=== PATIENT | male | born 1980 | race Caucasian/White ===

== ENCOUNTER 2020-02-20 10:11 | Emergency (ER) | payer BC ==
[2020-02-20] MEDS ORDERED: Ondansetron 4 MG/2 ML SDV IVPUSH ONE (10:42)
[2020-02-20] MEDS ORDERED: Sodium Chloride 0.9% 1,000 ML IV STA (10:42)
[2020-02-20] MEDS ORDERED: Sodium Chloride 0.9% 10 ML Syringe FLUSH PRN (10:42)
[2020-02-20] MEDS ORDERED: HYDROmorphone 1 MG/ML Syringe IVPUSH ONE (10:43)
[2020-02-20] MEDS ORDERED: Ketorolac 30 MG/ML SDV IVPUSH ONE (10:43)
--- NOTE | 2020-02-20 11:52 | EDM.PDOC ---
ED HPI GENERAL MEDICAL PROBLEM - General Chief Complaint: Abdominal Pain Stated Complaint: [facility] Time Seen by Provider: 02/20/20 10:20 Source of Information: Reports: Patient, EMS History Limitations: Reports: No Limitations - History of Present Illness INITIAL COMMENTS - FREE TEXT/NARRATIVE: The patient presents by [facility] for back and abdominal pain. The patient says last night this all started with back pain. His rubbed his back and it felt better. This morning the back pain was more intense and he has abdominal pain. He also has nausea, vomiting and diarrhea. He has no fever, chills, cough, congestion, runny nose, chest pain or shortness of breath. This has never happened to him before. He has no history of kidney stones. He still has his gallbladder and appendix. Onset: Gradual Duration: Day(s): (last night) Location: Reports: Abdomen, Back Quality: Reports: Sharp Severity: Severe Improves with: Reports: None Worsens with: Reports: None Associated Symptoms: Reports: Nausea/Vomiting. Denies: Chest Pain, Cough, Fever/Chills, Headaches, Shortness of Breath Abdominal Pain Score (Numeric/FACES): 10 - Related Data Allergies Allergy/AdvReac Type Severity Reaction Status Date / Time No Known Allergies Allergy Verified 02/20/20 10:23 Home Meds: Home Meds Ondansetron [Zofran ODT] 4 mg PO Q6H PRN #20 tab.dis 02/20/20 [Rx] Past Medical History - Past Health History Medical/Surgical History: Denies Medical/Surgical History Musculoskeletal History: Reports: Fracture Other Musculoskeletal History: right hand fracture - Past Surgical History GI Surgical History: Reports: Appendectomy Social & Family History - Tobacco Use Tobacco Use Status *Q: Never Tobacco User - Caffeine Use Caffeine Use: Reports: Energy Drinks, Soda - Recreational Drug Use Recreational Drug Use: No ED ROS GENERAL - Review of Systems Review Of Systems: See Below Constitutional: Reports: No Symptoms HEENT: Reports: No Symptoms Respiratory: Reports: No Symptoms Cardiovascular: Reports: No Symptoms Endocrine: Reports: No Symptoms GI/Abdominal: Reports: Abdominal Pain, Nausea, Vomiting : Reports: Flank Pain Musculoskeletal: Reports: No Symptoms ED EXAM, GI/ABD - Physical Exam Exam: See Below Exam Limited By: No Limitations General Appearance: Alert, No Apparent Distress Ears: Normal External Exam Nose: Normal Inspection Head: Atraumatic, Normocephalic Neck: Normal Inspection Respiratory/Chest: No Respiratory Distress, Lungs Clear, Normal Breath Sounds Cardiovascular: Regular Rate, Rhythm, No Edema, No Murmur GI/Abdominal Exam: Soft, No Organomegaly, No Mass, Tender (Moderate generalized tenderness) Back Exam: CVA Tenderness (L) Extremities: Normal Inspection Neurological: Alert, Oriented, No Motor/Sensory Deficits Course - Vital Signs Last Recorded V/S: Last Vital Signs Temp 97.3 F 02/20/20 13:12 Pulse 63 02/20/20 12:38 Resp 16 02/20/20 12:38 BP 119/68 02/20/20 12:38 Pulse Ox 91 L 02/20/20 12:38 - Orders/Labs/Meds Orders: Active Orders 24 hr Category Date Time Status Peripheral IV Care [RC] . DIRECTED Care 02/20/20 10:42 Active Abdomen Pelvis wo Cont [CT] Stat Exams 02/20/20 10:42 Taken HYDROmorphone [Dilaudid] Med 02/20/20 13:18 Once 0.5 mg IVPUSH ONETIME ONE Sodium Chloride 0.9% [Saline Flush] Med 02/20/20 10:42 Active 10 ml FLUSH ASDIRECTED PRN ED Antiemetic Medication Reflex [OM.PC] Stat Oth 02/20/20 10:42 Ordered Peripheral IV Insertion Adult [OM.PC] Stat Oth 02/20/20 10:42 Ordered Medication Orders Hydromorphone HCl (Dilaudid) 0.5 mg IVPUSH ONETIME ONE Stop: 02/20/20 13:19 Sodium Chloride (Saline Flush) 10 ml FLUSH ASDIRECTED PRN PRN Reason: Keep Vein Open Last Admin: 02/20/20 11:25 Dose: 10 ml Documented by: POPPY Labs: Laboratory Tests 02/20/20 02/20/20 02/20/20 Range/Units 11:10 11:10 11:22 WBC 18.16 H (4.23-9.07) K/mm3 RBC 5.19 (4.63-6.08) M/mm3 Hgb 15.3 (13.7-17.5) gm/dl Hct 45.2 (40.1-51.0) % MCV 87.1 (79.0-92.2) fl MCH 29.5 (25.7-32.2) pg MCHC 33.8 (32.2-35.5) g/dl RDW Std Deviation 42.2 (35.1-43.9) fL Plt Count 289 (163-337) K/mm3 MPV 9.5 (9.4-12.3) fl Neut % (Auto) 85.2 H (34.0-67.9) % Lymph % (Auto) 4.8 L (21.8-53.1) % [place] % (Auto) 9.4 (5.3-12.2) % Eos % (Auto) 0.3 L (0.8-7.0) Baso % (Auto) 0.1 (0.1-1.2) % Neut # (Auto) 15.45 H (1.78-5.38) K/mm3 Lymph # (Auto) 0.88 L (1.32-3.57) K/mm3 [place] # (Auto) 1.71 H (0.30-0.82) K/mm3 Eos # (Auto) 0.06 (0.04-0.54) K/mm3 Baso # (Auto) 0.02 (0.01-0.08) K/mm3 Manual Slide Review Abnormal smear Sodium 139 (136-145) mEq/L Potassium 4.5 (3.5-5.1) mEq/L Chloride 101 (98-107) mEq/L Carbon Dioxide 29 (21-32) mEq/L Anion Gap 13.5 (5-15) BUN 16 (7-18) mg/dL Creatinine 1.1 (0.7-1.3) mg/dL Est Cr Clr Drug Dosing 97.00 mL/min Estimated GFR (MDRD) > 60 (>60) mL/min BUN/Creatinine Ratio 14.5 (14-18) Glucose 130 H (74-106) mg/dL Calcium 9.8 (8.5-10.1) mg/dL Total Bilirubin 1.6 H (0.2-1.0) mg/dL AST 31 (15-37) U/L ALT 38 (16-63) U/L Alkaline Phosphatase 87 (46-116) U/L Total Protein 9.2 H (6.4-8.2) g/dl Albumin 4.8 (3.4-5.0) g/dl Globulin 4.4 gm/dL Albumin/Globulin Ratio 1.1 (1-2) Lipase 127 (73-393) U/L Urine Color Yellow (Yellow) Urine Appearance Slt cloudy H (Clear) Urine pH 5.5 (5.0-8.0) Ur Specific [place] > or = 1.030 (1.005-1.030) Urine Protein 1+ H (Negative) Urine Glucose (UA) Negative (Negative) Urine Ketones Negative (Negative) Urine Occult Blood Negative (Negative) Urine Nitrite Negative (Negative) Urine Bilirubin Negative (Negative) Urine Urobilinogen 0.2 (0.2-1.0) Ur Leukocyte Esterase Negative (Negative) Urine RBC Not seen (0-5) /hpf Urine WBC Not seen (0-5) /hpf Ur Squamous Epith Cells 0-5 (0-5) /hpf Urine Bacteria Not seen (FEW) /hpf Urine Mucus Few (FEW) /hpf Meds: Medications Generic Name Dose Route Start Last Admin Trade Name Silvia PRN Reason Stop Dose Admin Hydromorphone HCl 0.5 mg 02/20/20 13:18 Dilaudid IVPUSH 02/20/20 13:19 ONETIME ONE Sodium Chloride 10 ml 02/20/20 10:42 02/20/20 11:25 Saline Flush FLUSH 10 ml ASDIRECTED PRN Administration Keep Vein Open Discontinued Medications Generic Name Dose Route Start Last Admin Trade Name Silvia PRN Reason Stop Dose Admin Hydromorphone HCl 1 mg 02/20/20 10:43 02/20/20 11:26 Dilaudid IVPUSH 02/20/20 10:44 1 mg ONETIME ONE Administration Sodium Chloride 1,000 mls @ 1,000 mls/hr 02/20/20 10:42 02/20/20 11:25 Normal Saline IV 02/20/20 11:41 1,000 mls/hr .BOLUS STA Administration Ketorolac Tromethamine 30 mg 02/20/20 10:43 02/20/20 11:26 Toradol IVPUSH 02/20/20 10:44 30 mg ONETIME ONE Administration Ondansetron HCl 4 mg 02/20/20 10:42 02/20/20 11:25 Zofran IVPUSH 02/20/20 10:43 4 mg ONETIME ONE Administration - Re-Assessments/Exams Free Text/Narrative Re-Assessment/Exam: 02/20/20 11:51 I ordered an IV NS 1L bolus, zofran 4mg IV, dilaudid 1mg IV, toradol 30mg IV, labs, UA and a CT of his abdomen and pelvis. 02/20/20 13:19 His WBC is elevated at 18.16. His glucose is elevated at 132. His total bili is elevated at 1.6. His UA shows no UTI. His CT shows fluid filled colon suggestive of probable diarrheal illness. No other abnormality identified. He still has some pain so I ordered dilaudid 0.5mg IV. I will discharge him home with some zofran. Departure - Departure Time of Disposition: 13:25 Disposition: Home, Self-Care 01 Condition: Good Clinical Impression: Gastroenteritis - Discharge Information *PRESCRIPTION DRUG MONITORING PROGRAM REVIEWED*: Not Applicable *COPY OF PRESCRIPTION DRUG MONITORING REPORT IN PATIENT LIZ: Not Applicable Prescriptions: Ondansetron [Zofran ODT] 4 mg PO Q6H PRN #20 tab.dis PRN Reason: Nausea\vomiting Referrals: PCP,None [Ordering Only Provider] - Tuyet Ordaz PA-C [Physician Construction Area Manager] - 1 Week Forms: ED Department Discharge, ED Return to Work/School Form Additional Instructions: Drink plenty of fluids and advance your diet as tolerated. Take the zofran every 6 hours as needed for nausea and vomiting. Please return if you are worse. Sepsis Event Note (ED) - Evaluation Sepsis Screening Result: No Definite Risk - Focused Exam Vital Signs: Vital Signs Temp Pulse Resp BP Pulse Ox 02/20/20 13:12 97.3 F 02/20/20 12:38 63 16 119/68 91 L 02/20/20 10:17 97.0 F 60 16 129/85 98 - My Orders Last 24 Hours: My Active Orders 02/20/20 10:42 Peripheral IV Care [RC] . DIRECTED Abdomen Pelvis wo Cont [CT] Stat Sodium Chloride 0.9% [Saline Flush] 10 ml FLUSH ASDIRECTED PRN ED Antiemetic Medication Reflex [OM.PC] Stat Peripheral IV Insertion Adult [OM.PC] Stat 02/20/20 13:18 HYDROmorphone [Dilaudid] 0.5 mg IVPUSH ONETIME ONE - Assessment/Plan Last 24 Hours: My Active Orders 02/20/20 10:42 Peripheral IV Care [RC] . DIRECTED Abdomen Pelvis wo Cont [CT] Stat Sodium Chloride 0.9% [Saline Flush] 10 ml FLUSH ASDIRECTED PRN ED Antiemetic Medication Reflex [OM.PC] Stat Peripheral IV Insertion Adult [OM.PC] Stat 02/20/20 13:18 HYDROmorphone [Dilaudid] 0.5 mg IVPUSH ONETIME ONE
[2020-02-20] MEDS ORDERED: HYDROmorphone 0.5 MG/0.5 ML Syringe IVPUSH ONE (13:18)
--- NOTE | 2020-02-21 10:13 | CT ---
"PROCEDURE INFORMATION: Exam: CT Abdomen And Pelvis Without Contrast Exam date and time: 02/20/2020 1:21 PM Age: 39 years old Clinical indication: Abdominal pain TECHNIQUE: Imaging protocol: Computed tomography of the abdomen and pelvis without contrast. COMPARISON: No relevant prior studies available. FINDINGS: Liver: Normal. No mass. Gallbladder and bile ducts: Normal. No calcified stones. No ductal dilation. Pancreas: Normal. No ductal dilation. Spleen: Normal. No splenomegaly. Adrenal glands: Normal. No mass. Kidneys and ureters: Normal. No hydronephrosis. Stomach and bowel: The colon is fluid-filled suggesting probable diarrheal illness. No bowel obstruction is identified. The small bowel is decompressed. The stomach is unremarkable. Appendix: No evidence of appendicitis. Intraperitoneal space: Unremarkable. No free air. No significant fluid collection. Vasculature: Unremarkable. No abdominal aortic aneurysm. Lymph nodes: Unremarkable. No enlarged lymph nodes. Urinary bladder: Unremarkable as visualized. Reproductive: Unremarkable as visualized. Bones/joints: Unremarkable. No acute fracture. Soft tissues: Unremarkable. IMPRESSION: 1. Fluid-filled colon suggestive of probable diarrheal illness. No other abnormality identified. DIANA WEEMS | Final Radiology Report CONFIDENTIALITY STATEMENT This report is intended only for use by the referring physician, and only in accordance with law. If you received this in error, call [phone]. Page 2 of 2 Thank you for allowing us to participate in the care of your patient. Dictated and Authenticated by: Cyrus Vazquez MD 02/20/2020 2:02 PM Central Time ([place] & [place]) ARLIN"
== END 2020-02-20 13:43 | disposition home or self-care (01) ==
LOC: JD.ED 10:11
DX: K52.9 Noninfective gastroenteritis and colitis, unspecified (principal)
CPT/HCPCS: 36415; 74176; 80053; 81001; 83690; 85025; 96374; 96375; 96376; 99284; J1170; J1885; J2405; J7030

== ENCOUNTER 2020-08-23 20:36 | Emergency (ER) | payer BC ==
--- NOTE | 2020-08-23 21:12 | EDM.PDOC ---
ED HPI GENERAL MEDICAL PROBLEM - General Chief Complaint: Skin Complaint Stated Complaint: poss rash Time Seen by Provider: 08/23/20 20:46 Source of Information: Reports: Patient History Limitations: Reports: No Limitations - History of Present Illness INITIAL COMMENTS - FREE TEXT/NARRATIVE: Mr. Wagner is a very pleasant 40-year-old gentleman who now presents the ED after developing a generalized rash yesterday, 08/22/2020. The initial lesions were noticed on his chest, but since then, he has noticed some on both of his arms and one lesion on his face. For the most part, the lesions have stayed above the waist, and have spared the palms and soles. The lesions are not painful or pruritic. No prior similar symptoms. No recent fever. The patient has not attempted to treat the rash with any [id number] or home remedies. The only medication that the patient takes is Suboxone, for opioid addiction. No change in his dose recently. The patient denies recent travel, and he denies recently being in a hot tub. Here in the ED, the patient's initial BP is found to be mildly elevated at 153/100, otherwise, he is hemodynamically stable, afebrile, saturating 99% on room air. He appears to be comfortable. Prior to yesterday, the patient denies having a recent fever, chills, sore throat, ear pain, nasal or sinus congestion, cough, dyspnea, chest pain, p alpitations, nausea, vomiting, constipation, diarrhea, abdominal pain, urinary symptoms, recent weight gain or weight loss, recent bloody bowel movements or black bowel movements, recent joint aches, headaches, or rashes. The patient does not have a PCP. His Suboxone is prescribed by [facility] in [place]. - Related Data Allergies Allergy/AdvReac Type Severity Reaction Status Date / Time No Known Allergies Allergy Verified 02/20/20 10:23 Home Meds: Home Meds Buprenorphine HCl/Naloxone HCl [Suboxone 4 mg-1 mg Sl Film] 1 tab SL DAILY 08/23/20 [History] Past Medical History Musculoskeletal History: Reports: Fracture (left and right hand) Endocrine/Metabolic History: Reports: Obesity/BMI 30+ - Past Surgical History GI Surgical History: Reports: Appendectomy Social & Family History - Tobacco Use Tobacco Use Status *Q: Never Tobacco User - Caffeine Use Caffeine Use: Reports: None - Alcohol Use Alcohol Use History: No - Recreational Drug Use Recreational Drug Use: Yes Drug Use in Last 12 Months: No Recreational Drug Type: Reports: Oxycodone (including methadone, last took 2018) - Living Situation & Occupation Living situation: Reports: Single, with Significant Other (Fianc), with Family (2 kids) Occupation: Employed ([employer]) ED ROS GENERAL - Review of Systems Review Of Systems: Comprehensive ROS is negative, except as noted in HPI. ED EXAM, SKIN/RASH Exam: See Below Exam Limited By: No Limitations General Appearance: Alert, WD/WN, No Apparent Distress Skin: Warm, Dry, Intact, Normal Color, Rash (sparse maculopapular vesicular lesions, predominantly on the anterior thorax and both upper extremities, with very few seen on the back, face, or scalp.) Course - Vital Signs Last Recorded V/S: Last Vital Signs Temp 35.6 C L 08/23/20 20:49 Pulse 65 08/23/20 20:49 Resp 20 08/23/20 20:49 BP 153/100 H 08/23/20 20:49 Pulse Ox 99 08/23/20 20:49 - Re-Assessments/Exams Free Text/Narrative Re-Assessment/Exam: 08/23/20 21:09 The cause of the patient's maculopapular rash is not immediately obvious. I suspect that it is a viral exanthem, although it does not appear to be pityriasis rosea. It does not appear to be folliculitis. At this time, I am not recommending any specific treatment, however, I am recommending the patient follow-up with a Document Coordinator in [place] if his symptoms worsen or fail to improve. The patient is agreeable with that plan. Departure - Departure Time of Disposition: 21:10 Disposition: Home, Self-Care 01 Condition: Good Clinical Impression: Rash - Discharge Information *PRESCRIPTION DRUG MONITORING PROGRAM REVIEWED*: Not Applicable *COPY OF PRESCRIPTION DRUG MONITORING REPORT IN PATIENT LIZ: Not Applicable Instructions: Rash, Adult, [id number] Referrals: PCP,None [Primary Care Provider] - Forms: ED Department Discharge Additional Instructions: You were seen in the emergency room after developing a scattered generalized rash yesterday. Based on your history and physical examination, your rash appears to be a viral exanthem, although the exact cause of your rash is not known. If your symptoms persist or worsen, please follow-up with a Document Coordinator in [place]. In order to do so, we recommend you call the Physician Referral line at either [facility] or [facility]. If any other problems, please do not hesitate to return to the ER. Sepsis Event Note (ED) - Evaluation Sepsis Screening Result: No Definite Risk - Focused Exam Vital Signs: Vital Signs Temp Pulse Resp BP Pulse Ox 08/23/20 20:49 35.6 C L 65 20 153/100 H 99
== END 2020-08-23 21:15 | disposition home or self-care (01) ==
LOC: JD.ED 20:36
DX: R21 Rash and other nonspecific skin eruption (principal); E66.9 Obesity, unspecified; Z68.31 Body mass index [BMI] 31.0-31.9, adult
CPT/HCPCS: 99282

== ENCOUNTER 2022-12-09 11:54 | Emergency (ER) | payer BC ==
[2022-12-09] MEDS ORDERED: Metoclopramide 10 MG/2 ML SDV IVPUSH ONE (12:27)
[2022-12-09] MEDS ORDERED: diphenhydrAMINE 50 MG/ML SDV IVPUSH ONE (12:27)
[2022-12-09] MEDS ORDERED: Sodium Chloride 0.9% 1,000 ML IV SCH (12:45)
[2022-12-09 13:27] LABS: BASOPHILS ABSOLUTE AUTO 0.01 K/mm3 (0.01-0.08); BASOPHILS PERCENT AUTO 0.1 % (0.1-1.2); EOSINOPHILS ABSOLUTE AUTO 0.06 K/mm3 (0.04-0.54); EOSINOPHILS PERCENT AUTO 0.8 (0.8-7.0); HEMATOCRIT 38.3 % (40.1-51.0); IMMATURE GRAN ABSOLUTE AUTO 0.02 K/mm3 (0.00-0.10); IMMATURE GRAN PERCENT AUTO 0.3 % (<=1.0); LYMPHOCYTES ABSOLUTE AUTO 1.88 K/mm3 (1.32-3.57); LYMPHOCYTES PERCENT AUTO 25.8 % (21.8-53.1); MEAN CORPUSCULAR HEMOGLOBIN 29.9 pg (25.7-32.2); MEAN CORPUSCULAR HGB CONC 34.7 g/dl (32.2-35.5); MEAN CORPUSCULAR VOLUME 86.1 fl (79.0-92.2); MEAN PLATELET VOLUME 9.6 fl (9.4-12.3); MONOCYTES ABSOLUTE AUTO 0.42 K/mm3 (0.30-0.82); MONOCYTES PERCENT AUTO 5.8 % (5.3-12.2); NEUTROPHILS ABSOLUTE AUTO 4.91 K/mm3 (1.78-5.38); NEUTROPHILS PERCENT AUTO 67.2 % (34.0-67.9); PLATELET COUNT,PLT 254 K/mm3 (163-337); RED BLOOD CELL COUNT 4.45 M/mm3 (4.63-6.08)
[2022-12-09 13:30] LABS: HEMOGLOBIN 13.3 gm/dl (13.7-17.5)
[2022-12-09 13:44] LABS: INR 1.02; PROTHROMBIN TIME 10.9 SECONDS (9.7-12.0)
[2022-12-09 13:45] LABS: PTT,PARTIAL THROMBOPLSTIN TIME 26.2 SECONDS (21.7-31.4)
[2022-12-09 13:54] LABS: A/G RATIO 1.1 (1-2); ALANINE AMINOTRANSFERASE,ALT 23 U/L (16-63); ALBUMIN 4.2 g/dl (3.4-5.0); ALKALINE PHOSPHATASE 76 U/L (46-116); ANION GAP 13.3 (5-15); ASPARTATE AMNIOTRANSFERASE,AST 18 U/L (15-37); BILIRUBIN TOTAL 1.2 mg/dL (0.2-1.0); BLOOD UREA NITROGEN,BUN 10 mg/dL (7-18); BUN/CREATININE RATIO 11.1 (14-18); CALCIUM 9.6 mg/dL (8.5-10.1); CARBON DIOXIDE,CO2 27 mEq/L (21-32); CHLORIDE,CL 103 mEq/L (98-107); CREATININE 0.9 mg/dL (0.7-1.3); EST CRCL DRUG DOSING (CG) 114.96 mL/min; ESTIMATED GFR 108 mL/min (>60); GLUCOSE RANDOM 126 mg/dL (70-99); POTASSIUM,K 4.3 mEq/L (3.5-5.1); PROTEIN TOTAL,TP 8.2 g/dl (6.4-8.2); SODIUM,NA 139 mEq/L (136-145); TROPONIN I HIGH SENSITIVITY 6 pg/mL (<=76)
[2022-12-09 14:15] LABS: C-REACTIVE PROTEIN < 0.2 mg/dL (<1.0)
== END 2022-12-09 15:28 | disposition home or self-care (01) ==
LOC: JD.ED 11:54
DX: R42 Dizziness and giddiness (principal); H65.93 Unspecified nonsuppurative otitis media, bilateral; E66.9 Obesity, unspecified; Z68.30 Body mass index [BMI] 30.0-30.9, adult
CPT/HCPCS: 36415; 80053; 83735; 84484; 85025; 85610; 85730; 86140; 93005; 96374; 96375; 99284; J1200; J2765; J7030; 93010

== ENCOUNTER 2025-01-15 15:45 | Emergency (ER) | payer BC ==
[2025-01-15] MEDS: droPERidol 2.5 MG/ML SDV IV STA (16:22)
[2025-01-15 16:28] LABS: BASOPHILS ABSOLUTE AUTO 0.0 K/mm3 (0.0-0.2); BASOPHILS PERCENT AUTO 0.2 % (0.0-1.0); EOSINOPHILS ABSOLUTE AUTO 0.0 K/mm3 (0.0-0.4); EOSINOPHILS PERCENT AUTO 0.0 % (0.0-6.0); IMMATURE GRAN ABSOLUTE AUTO 0.05 K/mm3 (0.00-0.05); IMMATURE GRAN PERCENT AUTO 0.5 % (0.0-0.4); LYMPHOCYTES ABSOLUTE AUTO 1.1 K/mm3 (1.0-4.8); LYMPHOCYTES PERCENT AUTO 10.6 % (24.0-44.0); MEAN PLATELET VOLUME 9.7 fl (9.4-12.4); MONOCYTES ABSOLUTE AUTO 0.4 K/mm3 (0.0-0.8); MONOCYTES PERCENT AUTO 3.5 % (0.0-8.0); NEUTROPHILS ABSOLUTE AUTO 8.6 K/mm3 (1.8-7.7); NEUTROPHILS PERCENT AUTO 85.2 % (41.0-71.0); NRBC ABSOLUTE 0.00 (0.00-0.02); NRBC PERCENT 0.0 % (0.0-0.2); PLATELET COUNT,PLT 253 K/mm3 (150-400); RED BLOOD CELL COUNT 4.71 M/mm3 (4.52-5.90); WHITE BLOOD CELL COUNT,WBC 10.13 K/mm3 (3.9-11.3)
[2025-01-15 16:50] LABS: A/G RATIO 1.2 (1-2); ALANINE AMINOTRANSFERASE,ALT 30.0 U/L (16-63); ASPARTATE AMNIOTRANSFERASE,AST 21.0 U/L (15-37); BILIRUBIN TOTAL 1.6 mg/dL (0.2-1.0); BLOOD UREA NITROGEN,BUN 13.0 mg/dL (7-18); CARBON DIOXIDE,CO2 30.0 mEq/L (21-32); CHLORIDE,CL 104.0 mEq/L (98-107); CREATINE KINASE,CK 118.0 U/L (39-308); CREATININE 1.3 mg/dL (0.7-1.3); EST CRCL DRUG DOSING (CG) 77.93 mL/min; ESTIMATED GFR 69.0 mL/min (>60); GLUCOSE RANDOM 130.0 mg/dL (70-99); POTASSIUM,K 4.1 mEq/L (3.5-5.1); PROTEIN TOTAL,TP 8.1 g/dl (6.4-8.2); SODIUM,NA 142.0 mEq/L (136-145)
[2025-01-15] MEDS ORDERED: Naloxone 0.4 MG/ML SDV IVPUSH PRN (16:59)
[2025-01-15] MEDS: Iopamidol 612 MG/ML 100 ML Bottle IVPUSH ONE (17:20)
[2025-01-15] MEDS: Sodium Chloride 0.9% 10 ML Syringe FLUSH ONE (17:20)
[2025-01-15] MEDS: Ketorolac 30 MG/ML SDV IVPUSH ONE (18:57)
[2025-01-15] MEDS: Ketorolac 60 MG/2 ML SDV IVPUSH STA (18:57)
== END 2025-01-15 19:10 | disposition home or self-care (01) ==
LOC: JD.ED 15:45
DX: N13.2 Hydronephrosis with renal and ureteral calculous obstruction (principal); M62.830 Muscle spasm of back; E66.9 Obesity, unspecified; Z79.899 Other long term (current) drug therapy; Z90.49 Acquired absence of other specified parts of digestive tract
CPT/HCPCS: 36415; 74177; 74177-26; 80053; 82550; 83735; 85025; 96361; 96374; 96375; 99284; 99285-25; A9270-GY; J1171; J1790; J1885; J3360; J7030; Q9967